=== PATIENT | male | born 1945 | race Caucasian/White ===

== ENCOUNTER → 2016-12-15 | Outpatient (CLI) | payer MEDICARE ==
--- NOTE | 2016-12-15 09:00 | XR ---
EXAMINATION TYPE: XR knee complete RT DATE OF EXAM ORDERED: 12/15/2016 8:55 AM HISTORY: Chronic knee pain. COMPARISON: None. FINDINGS: There is some peaking of intercondylar spines. Joint spaces are maintained. There is no ch ondrocalcinosis. No joint effusion is seen. No acute osseous lesion is identified. IMPRESSION: EARLIEST CHANGES OF OSTEOARTHRITIS.
== END | disposition home or self-care (01) ==
LOC: RADXRMAIN 08:41
PROVIDERS: ATTEND Internal Medicine
DX: M17.11 Unilateral primary osteoarthritis, right knee (principal)

== ENCOUNTER → 2016-12-17 | Outpatient (CLI) | payer BC, MEDICARE ==
[2016-12-17 13:41] LABS: Blood Urea Nitrogen 21 mg/dL (9-20); Non-African American GFR(MDRD) >60 (>60 ml/min/1.73 sqM)
--- NOTE | 2016-12-17 15:02 | CT ---
EXAMINATION TYPE: CT angio thoracic/abd aorta DATE OF EXAM: 12/17/2016 2:55 PM COMPARISON: NONE HISTORY: Aortic valve disorders CT DLP: 2243 mGycm Automated exposure control for dose reduction was used. TECHNIQUE: Performed without and with IV Contrast, patient injected with 100 mL of Omnipaque 350. . FINDINGS: The ascending thoracic aorta at the level of the main pulmonary artery is 4.0 cm the main pulmonary a rtery bifurcation is 2.9 cm. Note is made of calcified lymphadenopathy within the right hilar region. There is calcified granuloma measuring 0.6 cm in the periphery of the right upper lobe. Coronary art oziel calcification is noted. Punctate densities in the anterior mid left lung. Series 5 image 35. Subt le 5 mm densities in the anterior right middle lobe same level. Portion of the thyroid visualized is normal. There is hypodensity within the superior lateral right lobe liver with some peripheral enhancement. H emangioma may be present. Additional workup is recommended. Aorta tapers normally through its visuali zed course to the bifurcation. Internal/external iliac vessels are patent. Kidneys appear normal without masses cysts or hydronephrosis. The adrenal glands are normal. Spleen i s unremarkable. Pancreas is normal. Gallbladder is normal. Three-D reconstructed images performed separately on the [employer] computer by the technologist are pres ented. There is a three-vessel arch. Celiac axis and mesenteric arteries appear normal renal arteries appear normal IMPRESSION: NO SUSPICIOUS AORTIC ABNORMALITIES THROUGH THE THORACIC ABDOMINAL AND PROXIMAL PELVIC PORTIONS VISUAL IZED 2. SUSPECTED HEMANGIOMA PERIPHERY RIGHT LOBE LIVER. ADDITIONAL WORKUP IS RECOMMENDED.
== END | disposition home or self-care (01) ==
LOC: RADCTMAIN 12:56
PROVIDERS: ATTEND Internal Medicine Interventional Cardiology
DX: I35.1 Nonrheumatic aortic (valve) insufficiency (principal)
CPT/HCPCS: 82565; 84520; 75635; 71275; 36415; Q9967

== ENCOUNTER → 2018-12-28 | Outpatient (CLI) | payer MEDICARE ==
--- NOTE | 2018-12-28 12:27 | CT ---
EXAMINATION TYPE: CT angio chest DATE OF EXAM: 12/28/2018 COMPARISON: 12/17/2016 HISTORY: 73-year-old male Follow up ascending aortic aneurysm without rupture. TECHNIQUE: Contiguous axial scanning of the chest performed without and with IV Contrast, patient inj ected with 80 mL of Isovue 370. Coronal/sagittal MIP reconstructions performed. 3-D reconstructions g enerated on a dedicated independent workstation. CT DLP: 1112.1 mGycm Automated exposure control for dose reduction was used. FINDINGS: Heart normal size. Trace anterior pericardial fluid measuring 4 mm thick. Coronary vessel calcificati ons are present. -Aortic root is mildly aneurysmal at 4.1 cm versus 4.3 cm, previously. -Mid ascending aorta mildly aneurysmal at 4.2 cm versus 4.1 cm, previously. -Conventional arch vessel branching anatomy. -Ectatic upper descending thoracic aorta 3.0 cm versus 2.8 cm, previously. -Elongated descending thoracic aorta. -The lower descending thoracic aorta is ectatic at 2.8 cm, unchanged. Calcified right hilar lymph nodes related to prior granulomatous disease. No thoracic lymphadenopathy . Calcified granulomas and stable tiny tree-in-bud nodularity just adjacent peripheral right midlung. 4 mm anterior right midlung ovary nodule axial image 35 is unchanged. Scattered mild emphysematous alex nge. No consolidation or pleural effusion. Visualized upper abdomen shows hemangioma along the peripheral right hepatic dome without additional abnormality seen. Bones: Moderate multilevel degenerative disc disease and thoracic spine. IMPRESSION: 1. RELATIVELY STABLE ANEURYSMAL THORACIC AORTA (AORTIC ROOT 4.1 CM VERSUS 4.3 CM, PREVIOUSLY; ASCENDI NG AORTA 4.2 CM VERSUS 4.1 CM, PREVIOUSLY). 2. THE UPPER DESCENDING THORACIC AORTA IS BORDERLINE ANEURYSMAL AT 3.0 CM VERSUS 2.8 CM, PREVIOUSLY. 3. VERY MILD EMPHYSEMATOUS CHANGE AND PRIOR GRANULOMATOUS DISEASE. 4. TRACE ANTERIOR PERICARDIAL EFFUSION MEASURING 4 MM THICK. CORONARY ARTERY DISEASE.
== END | disposition home or self-care (01) ==
LOC: RADCTMAIN 09:56
PROVIDERS: ATTEND Internal Medicine Interventional Cardiology
DX: I25.10 Atherosclerotic heart disease of native coronary artery without angina pectoris (principal)
CPT/HCPCS: 82565; 84520; 71275; 36415; Q9967

== ENCOUNTER → 2019-09-08 | Outpatient (CLI) | payer MEDICARE ==
--- NOTE | 2019-09-08 10:04 | CT ---
EXAMINATION TYPE: CT angio chest DATE OF EXAM: 09/08/2019 COMPARISON: CTA chest December 28, 2018 and older study December 17, 2016. HISTORY: Thoracic Aortic Aneurysm without rupture CT DLP: 445 mGycm. Automated Exposure Control for Dose Reduction was Utilized. CONTRAST: CTA scan of the thorax is performed with IV Contrast, patient injected with 80 mL of Isovue 370, pulm onary embolism protocol. Three-D reconstructed images are created on an independent workstation and r eviewed. FINDINGS: LUNGS: There is redemonstration of 5 mm calcified nodule or granuloma right upper lobe axial image 22 . There is no pleural effusion or pneumothorax seen bilaterally. The tracheobronchial tree is patent . No suspicious consolidation is present. MEDIASTINUM: There is satisfactory central opacification of central pulmonary arteries. There are no greater than 1 cm hilar or mediastinal lymph nodes. Trace pericardial effusion anteriorly axial imag e 34 is less prominent. Heart size is normal. Ascending aorta measures up to 4.3 cm in diameter axial image 26 not significantly changed from last 2 studies. Mild to moderate peripheral mixed plaque in the arch and descending aorta. OTHER: [id number]-[id number] multilevel spurring in the spine. Nonspecific subcentimeter hyperdense nodula rity right hepatic dome image 47 could reflect tiny flash filling hemangioma or other vascular anomal y. Findings stable. IMPRESSION: Stable 4.3 cm ascending aortic aneurysm.
== END | disposition home or self-care (01) ==
LOC: RADCTMAIN 08:29
PROVIDERS: ATTEND Nurse Practitioner Adult Health
DX: I71.2 Thoracic aortic aneurysm, without rupture (principal)
CPT/HCPCS: 82565; 84520; 71275; 36415; Q9967

== ENCOUNTER → 2021-02-08 | Outpatient (CLI) | payer MEDICARE ==
--- NOTE | 2021-02-08 15:46 | CT ---
CT CHEST FOR PULMONARY EMBOLISM. EXAMINATION TYPE: CT angio chest DATE OF EXAM: 02/08/2021 INDICATION: Thoracic aortic aneurysm, without rupture CT DLP: 978.40 mGycm, Automated exposure control for dose reduction was used. CONTRAST: Patient injected with 100 ml mL of Isovue 370. COMPARISON: 09/08/2019 TECHNIQUE: CT of the chest is performed on a spiral scan at 2 mm thick sections. Study is performed with intravenous contrast timed for evaluation for pulmonary embolism. This will limit additional po rtions of the evaluation. 3-D MIP images reconstructed by the technologist are reviewed on the compu ter in the coronal and sagittal planes. FINDINGS: No persistent filling defects are evident to suggest an acute pulmonary embolism. No mediastinal or hilar adenopathy enlarged by CT criteria is evident. The ascending aorta diameter at the level of the main pulmonary artery is 4.2 cm. The main pulmonary artery diameter at the bifur cation is 3.1 cm. Parapelvic aortic root measures 3.5 cm. Ascending thoracic aorta at the level of ma in pulmonary artery is 4.2 cm. Aortic arch transverse dimension is 2.6 cm. Descending thoracic aorta at the level of the diaphragm measures 2.7 cm. There is a 0.6 cm calcification in the periphery of the right lung. Calcified right hilar adenopathy is evident. Note is made of some coronary artery calcification. Limited CT section through the upper abdomen are unremarkable. IMPRESSIONS: 1. Acute pulmonary embolism. 2. Ascending thoracic aortic aneurysm measuring 4.2 cm.
== END | disposition home or self-care (01) ==
LOC: RADCTMAIN 08:28
PROVIDERS: ATTEND Internal Medicine Interventional Cardiology
DX: I71.2 Thoracic aortic aneurysm, without rupture (principal); I26.99 Other pulmonary embolism without acute cor pulmonale
CPT/HCPCS: 82565; 84520; 71275; 36415; Q9967

== ENCOUNTER → 2021-12-13 | Outpatient (CLI) | payer MEDICARE ==
[2021-12-13 14:33] LABS: HCT 42.9 % (39.6-50.0); HGB 13.8 g/dL (13.0-17.0); MCH 31.7 pg (27.0-32.0); MCHC 32.2 g/dL (32.0-37.0); MCV 98.6 fL (80.0-97.0); Mean Platelet Volume 9.9 fL (9.5-12.2); NRBC Per 100 WBC 0 /100 WBCS (0.0-0.0); Platelet Count 253 X 10*3/uL (140-440); RBC 4.35 X 10*6/uL (4.40-5.60); RDW 13.2 % (11.5-14.5); WBC 6.11 X 10*3/uL (4.50-10.00)
[2021-12-13 15:11] LABS: African American GFR (CKD) 92.1 (60.0-200.0); Anion Gap 11.2 mmol/L (10.00-18.00); Blood Urea Nitrogen 19.8 mg/dL (9.0-27.0); Carbon Dioxide 25.9 mmol/L (20.0-27.5); Non-African American GFR(CKD) 79.5 (60.0-200.0); Potassium 4.2 mmol/L (3.5-5.5)
[2021-12-14 12:16] LABS: Coronavirus SARS CoV-2 Not Detected (Not Detected)
== END | disposition home or self-care (01) ==
LOC: LABPAT 08:25
PROVIDERS: ATTEND Internal Medicine Clinical Cardiac Electrophysiology
DX: Z01.812 Encounter for preprocedural laboratory examination (principal); Z20.822 Contact with and (suspected) exposure to COVID-19; I44.1 Atrioventricular block, second degree
CPT/HCPCS: 80051; 82565; 84520; 85027; 36415; U0003; C9803; U0005

== ENCOUNTER 2021-12-16 05:58 | Day surgery (SDC) | payer MEDICARE ==
[2021-12-13 13:14] VITALS: BMI 30.5
[2021-12-16] MEDS ORDERED: LACTATED RINGERS 1,000 ML IV SCH (06:00)
[2021-12-16] MEDS ORDERED: SODIUM CHLORIDE 0.9% 1,000 ML IV SCH ×2 (06:00)
[2021-12-16] MEDS ORDERED: SODIUM CHLORIDE 0.9% 1,000 ML IV ONE (06:30)
[2021-12-16] MEDS ORDERED: PROPOFOL 10 MG/ML 20 ML VIAL IV ONE (07:27)
[2021-12-16] MEDS ORDERED: MIDAZOLAM 2 MG/2 ML VIAL ONE (07:27)
[2021-12-16] MEDS ORDERED: diphenhydrAMINE 50 MG/ML 1 ML VIAL ONE (07:27)
[2021-12-16] MEDS ORDERED: fentaNYL (PF) 50 MCG/ML 2 ML AMP ONE (07:27)
[2021-12-16] MEDS ORDERED: IOPAMIDOL-370 50ML BTL INJ ONE (07:39)
[2021-12-16] MEDS ORDERED: LIDOCAINE 1% INJ 10MG/ML (20 ML MDV) SQ ONE (08:00)
[2021-12-16] MEDS ORDERED: ACETAMINOPHEN TAB 325 MG TAB PO PRN (09:58)
[2021-12-16] MEDS ORDERED: ACETAMINOPHEN IV (For NPO) 1,000 MG in EMPTY BAG 1 BAG IVPB ONE (09:58)
--- NOTE | 2021-12-16 10:03 | P.EPPROC ---
- EP Procedure Note Electrophysiology Procedure Note: Procedure Left upper extremity venogram Details 10 mL dye injection the left arm Patent left axillary and subclavian venous system into the central venous circulation Plan Proceed with biventricular pacing for intermittent complete heart block with a prolonged AR interval at baseline of between 350-400 ms
--- NOTE | 2021-12-16 10:09 | P.EPPROC ---
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 Written informed consent was obtained prior to the procedure. Conscious sedation provided by anesthesia team IV antibiotics administered. Local anesthesia administered. A 4 cm incision made in the pectoral area. Subfascial pocket made. Venous access obtained Venous sheaths placed. Leads placed in the right heart Atrial lead position the right atrial appendage. Metronic 52 cm model #5076, active fix P waves 2.1 mV pacing impedance 570 ohms and pacing threshold 0.5 V at 0.4 ms RV lead position in the RV apex. Metronic model #5076, 58 cm in length, active fix R waves 11.4 mV, pacing impedance 931 ohms, pacing threshold 0.75 V at 0.4 ms HIS lead positioned Metronic model #3830 #69 cm in length Nonselective capture with threshold at 1 V at 1 ms Pacing impedance 513 ohms Biventricular pacemaker device connected to the leads and placed in the subfascial pocket Metronic generator model number [id number] [facility] [employer] [employer] P MRI Patient tolerance the procedure well without acute complications Device programmed to DDD mode 50 PPM, AV delay 160 ms with preferential His bundle pacing
--- NOTE | 2021-12-16 14:09 | XR ---
EXAMINATION TYPE: XR chest 1V portable DATE OF EXAM: 12/16/2021 Comparison: CT 02/08/2021. Clinical History: 76-year-old male Lead placement check Findings: Left anterior chest wall pacemaker generator. There are 3 leads, suspected one right atrial lead and 2 right ventricular leads, one of which is short and can be correlated clinically. Heart borderline i n size. The vasculature within normal limits. Known calcified granuloma periphery of the right midlun g. No consolidation, pneumothorax, or pleural effusion. Impression: 1. Left anterior chest wall pacemaker generator. There are 3 leads. Suspect a right atrial lead and 2 right ventricular leads, one of which is short and can be correlated clinically. 2. Borderline heart size. No acute process seen.
[2021-12-17] MEDS: ASPIRIN 81 MG PO SCH (05:57)
[2021-12-17] MEDS: ATORVASTATIN 20 MG TAB PO SCH (05:57)
[2021-12-17] MEDS ORDERED: ceFAZolin 1 GM in SODIUM CHLORIDE 0.9% IRRIG BTL 250 ML IRRIGATION PRN ×2 (06:00→07:00)
[2021-12-17] MEDS: LOSARTAN-HCTZ 50-12.5 MG 1 EACH TAB PO SCH (09:13)
[2021-12-17] MEDS ORDERED: diphenhydrAMINE 50 MG/ML 1 ML VIAL ONE (09:44)
[2021-12-17] MEDS ORDERED: fentaNYL (PF) 50 MCG/ML 2 ML AMP ONE (09:44)
[2021-12-17] MEDS ORDERED: PROPOFOL 10 MG/ML 20 ML VIAL IV ONE (09:44)
[2021-12-17] MEDS ORDERED: MIDAZOLAM 2 MG/2 ML VIAL ONE (09:44)
[2021-12-17] MEDS ORDERED: LACTATED RINGERS 1,000 ML IV ONE (09:50)
[2021-12-17] MEDS ORDERED: LIDOCAINE 1% INJ 10MG/ML (20 ML MDV) ONE ×2 (10:07→10:08)
[2021-12-17] MEDS ORDERED: LIDOCAINE 1% INJ 10MG/ML (20 ML MDV) SQ ONE (10:25)
[2021-12-17] MEDS ORDERED: IOPAMIDOL-250 50ML BTL IV ONE (11:08)
[2021-12-17] MEDS ORDERED: ACETAMINOPHEN TAB 325 MG TAB PO PRN (12:25)
--- NOTE | 2021-12-17 12:32 | P.EPPROC ---
- EP Procedure Note Electrophysiology Procedure Note: Diagnosis Bradycardia secondary to AV block, standard pacemaker will result in RV pacing 100% His bundle lead dislodgment despite excellent initial position and thresholds Procedure LV/ biventricular pacemaker implantation New biventricular pacemaker can implanted, quadripolar connection Old biventricular pacemaker can removed, bipolar connection Repositioning atrial lead Lead repositioning RV lead Details Patient was brought to the EP lab in a fasting state. Written informed consent was obtained prior to the procedure. Conscious sedation provided by anesthesia team IV antibiotics administered. Local anesthesia administered. A 4 cm incision made in the pectoral area. Subfascial pocket accessed. Single Venous access obtained Venous sheath placed. LV Lead placed in the right heart. His bundle lead extracted and the access site oversewn to prevent backbleeding Atrial lead position the right atrial appendage. Atrial lead was unscrewed and repositioned P waves 2.5 mV, pacing threshold 0.5 V at 0.4 ms and pacing impedance of 589 ohms, 10 V negative RV lead position in the RV apex. RV lead was unscrewed and repositioned 8.1 mV sensing, 0.5 V at 0.4 ms pacing threshold, pacing impedance 517 ohms and 10 V test negative LV lead positioned in the anterior LV vein. Difficult coronary sinus access, multiple sheaths used to access the coronary sinus Excellent thresholds via poles 1,2 and 3, without phrenic nerve stimulation Diaphragmatic stimulation after 3 V when pacing electrodes 3-4 Threshold 0.75 V at 0.4 ms, pacing impedance 1045 ohms Biventricular pacemaker device connected to the leads and placed in the subfascial pocket Patient tolerance the procedure well without acute complications
[2021-12-17] MEDS ORDERED: ACETAMINOPHEN IV (For NPO) 1,000 MG in EMPTY BAG 1 BAG IVPB ONE (13:00)
[2021-12-18 07:23] VITALS: BP 131/63; TEMP 98.9
--- NOTE | 2021-12-18 07:47 | XR ---
EXAMINATION TYPE: XR chest 1V portable DATE OF EXAM: 12/18/2021 COMPARISON: Chest x-ray December 16, 2021 HISTORY: Lead placement check. TECHNIQUE: Single AP portable frontal upright view of the chest is obtained. FINDINGS: There is chronic parenchymal change without suspicious new focal air space opacity, pleura l effusion, or pneumothorax seen. The cardiac silhouette size is stable and mildly enlarged. Pacemak er with leads over right atrium and right ventricle redemonstrated. There is new third lead presumed in the coronary sinus. The osseous structures are intact. IMPRESSION: No complication after new pacemaker lead placement.
--- NOTE | 2021-12-18 07:59 | P.DS ---
Providers Attending physician: Terrance Saucedo Primary care physician: Shelia Vega [facility] Course: Patient is doing well. He is resting comfortably in bed No dizziness lightheadedness or palpitations Minimal discomfort Pulse rate in the 60s Blood pressure normal 131/63 mmHg Afebrile No JVD no hepatojugular reflux Basic site is healed well minimal soakage No hematoma Soft S1, soft S2, soft systolic murmur over the precordium Lungs are clear no rhonchi no crackles Abdomen soft Twelve-lead EKG shows AV sequential Bi V pacing Impression Incomplete heart block AV node Wenckebach block when pacing at at a thousand milliseconds Biventricular pacemaker implanted His bundle lead dislodged after an excellent position and excellent thresholds LV lead placed via the anterior vein on the lateral LV, excellent thresholds Likely RA and RV as well as LV enlargement given the length of the leads accommodated Suggest May go home after completion of IV antibiotics and device interrogation Chest x-ray was reviewed and does not show any evidence of pneumothorax All 3 leads and excellent position Follow-up in the device clinic in a week in follow Dr. Griffiths and Dr. Vega as before Plan - Discharge Summary Discharge Rx Participant: No New Discharge Prescriptions: Continue Atorvastatin [Lipitor] 20 mg PO DAILY Aspirin [Adult Low Dose Aspirin EC] 81 mg PO DAILY Losartan/Hydrochlorothiazide [Losartan-Hctz 100-25 mg Tab] 1 tab PO DAILY Discharge Medication List Atorvastatin [Lipitor] 20 mg PO DAILY 12/13/21 [History] Losartan/Hydrochlorothiazide [Losartan-Hctz 100-25 mg Tab] 1 tab PO DAILY 12/13/21 [History] Aspirin [Adult Low Dose Aspirin EC] 81 mg PO DAILY 12/16/21 [History] Follow up Appointment(s)/Referral(s): Terrance Saucedo MD [STAFF PHYSICIAN] - 12/23/21 10:30 am (Appointment is the at the [facility]- December [address] Griffiths as previously scheduled) Reinier Griffiths MD [STAFF PHYSICIAN] - 1 Week Shelia Vega MD [Primary Care Provider] - 1 Week Patient Instructions/Handouts: Procedural Sedation (ED), Pacemaker (DC) Activity/Diet/Wound Care/Special Instructions: PATIENT EDUCATION MATERIAL Instructions following a heart rhythm device implant. 1. Keep dressing DRY for 5 DAYS. You may cover the area with Saran or Cling Wrap, prior to a shower. 2. The dressing will be removed in the [facility]. Absorbable sutures were used to close the wound. 3. Avoid raising the left arm above the shoulder level. 4 week restriction 4. Avoid arm movements, like backscratching, rubbing the head, or pulling on a cord. 4 weeks restriction 5. Gentle range of motion movements of the shoulder, closest to the incision should be performed to avoid a frozen shoulder. (Pendulum exercises of the shoulder) 6. The opposite arm may be used freely. 7. Avoid driving for 7 days. 8. Avoid activities such as golfing, swimming, weed whacking, lifting more than 10 pounds weight, bowling, gymnastics and weight training/lifting. (6 weeks restriction) 9. Activities such as wood chopping with an axe, pull-ups in the gymnasium, power lifting, arc-welding, being close to home induction cooktops will always be a problem. 10. Arm sling is only a reminder not to raise the arm above the head. You do not need to keep the arm completely immobilized. Your free to move the arm and use it and for normal activities. In case of any problems, please call [facility], @ [phone], Attention: Device Clinic Device clinic follow-up in 5-7 days Follow-up with primary liquor store manager Dr. Griffiths as previously scheduled No change in medications Discharge Disposition: HOME SELF-CARE
[2021-12-18 08:44] VITALS: PULSE 61
[2021-12-18] MEDS: LOSARTAN-HCTZ 50-12.5 MG 1 EACH TAB PO SCH (09:06)
[2021-12-18] MEDS: ASPIRIN 81 MG PO SCH (09:08)
[2021-12-18] MEDS: ATORVASTATIN 20 MG TAB PO SCH (09:08)
[2021-12-18 10:30] VITALS: RESP 14
== END 2021-12-18 12:22 | disposition home or self-care (01) ==
LOC: CATHEP 05:58 → 6NMEDSUR 13:53 → CATHEP 12-18 12:22
PROVIDERS: ATTEND Internal Medicine Clinical Cardiac Electrophysiology
DX: Z45.018 Encounter for adjustment and management of other part of cardiac pacemaker (principal); R00.1 Bradycardia, unspecified; I10 Essential (primary) hypertension; I71.2 Thoracic aortic aneurysm, without rupture; E78.2 Mixed hyperlipidemia; I35.1 Nonrheumatic aortic (valve) insufficiency; I36.1 Nonrheumatic tricuspid (valve) insufficiency; I34.0 Nonrheumatic mitral (valve) insufficiency; I45.9 Conduction disorder, unspecified; Z79.82 Long term (current) use of aspirin; Z79.899 Other long term (current) drug therapy
CPT/HCPCS: 33225; 33208; 33229; 71045 ×2; C1769 ×4; C1887; C1892; C1898; C2621 ×2; J2250 ×2; J1200 ×2; J0690 ×3; J2001 ×2; J3010 ×2; J2704 ×2; Q9966; Q9967

== ENCOUNTER → 2023-07-21 | Outpatient (CLI) | payer MEDICARE ==
--- NOTE | 2023-07-21 22:53 | US ---
EXAMINATION TYPE: US kidneys/renal and bladder DATE OF EXAM: 07/21/2023 COMPARISON: NONE CLINICAL INDICATION: Male, 78 years old with history of R31.29 OTHER MICROSCOPIC HEMATURIA; micro men aturia on urinalysis EXAM MEASUREMENTS: Right Kidney: 11.5x5.1x5.8 cm Left Kidney: 10.4x6.0x4.9 cm Right Kidney: wnl, slightly limited visualization due to close rib spaces, bowel and body habitus Left Kidney: wnl, slightly limited due to bowel Bladder: wall diverticulum noted, though bladder was not fully distended. Prostate appears to protrud e into posterior bladder Bilateral Jets seen: Yes IMPRESSION: 1. Suggestion of urinary bladder diverticulum. 2. Prostate hypertrophy with inferiorly bladder impression #3 kidneys appear unremarkable.
== END | disposition home or self-care (01) ==
LOC: RADUSWWP 14:00
PROVIDERS: ATTEND Internal Medicine
DX: N40.0 Benign prostatic hyperplasia without lower urinary tract symptoms (principal); R31.29 Other microscopic hematuria
CPT/HCPCS: 76770

== ENCOUNTER 2024-08-22 08:01 | Day surgery (SDC) | payer MEDICARE ==
[2024-08-17 12:25] VITALS: BMI 31.1
[~2024-08-22 08:01] MED LIST: LIDOCAINE 1% (10MG/ML) FOR IV START INTRADERMA PRN
[2024-08-22 08:23] VITALS: TEMP 96.2
[2024-08-22] MEDS: IV FLUID CONTINUATION 1,000 ML IV ONE (08:28)
[2024-08-22] MEDS: LACTATED RINGERS 1,000 ML IV SCH (08:28)
[2024-08-22 08:37] LABS: Glucose,Whole Blood 110 mg/dL (70-110)
[2024-08-22] MEDS ORDERED: PROPOFOL 10 MG/ML 20 ML VIAL IV ONE (08:40)
--- NOTE | 2024-08-22 09:16 | P.PCN ---
Date of Procedure: 08/22/24 Preoperative Diagnosis: Positive Cologuard Postoperative Diagnosis: Rectal polyp Cecal polyp Procedure(s) Performed: Colonoscopy with hot snare polypectomy Anesthesia: MAC Surgeon: Yuri Lopez Pathology: other (Rectal polyp and cecal polyp) Condition: stable Disposition: same day Indications for Procedure: 79-year-old male presents today for colonoscopy secondary to positive Cologuard. Denies any blood in his stool. Denies any family history of colon cancer, Crohn's disease or inflammatory bowel disease. Risks, benefits and alternatives were provided to the patient. All questions answered prior to attending the endoscopy suite. Operative Findings: Rectal polyp Cecal polyp Description of Procedure: The patient was brought to the endoscopy suite. He was then placed in left lateral decubitus position and adequate sedation achieved using conscious sedation. A digital rectal exam was performed and mild internal hemorrhoids were palpated. An endoscope was then placed in the rectum and advanced to the cecum as identified by landmarks including the appendiceal orifice and the ileocecal valve. The prep was good. The colonoscope was then slowly withdrawn, examining for any mucosal abnormalities. The cecum, ascending, transverse, descending and sigmoid colon were visualized adequately. A polyp was found in the cecum and this was removed with hot snare polypectomy. Hemostasis was maintained. Similarly a polyp was found in the rectum and this was removed with hot snare polypectomy. Hemostasis was maintained. Both polyps were removed in entirety. Retroflexion was performed in the rectum and mild internal hemorrhoids were visible. No evidence of diverticulosis throughout the colon. Excess air was removed. The colonoscope withdrawn and the procedure terminated. The patient was then transferred to the recovery unit in stable condition. Repeat colonoscopy should be performed in 3 years.
[2024-08-22 09:29] VITALS: BP 111/70; PULSE 68; RESP 18
== END 2024-08-22 09:45 | disposition home or self-care (01) ==
LOC: ORWHC2ENDO 08:01
PROVIDERS: ATTEND Surgery
CPT/HCPCS: 45385; 88305

== ENCOUNTER → 2024-10-06 | Outpatient (CLI) | payer MEDICARE ==
[2024-10-06 15:15] LABS: African American GFR (CKD) 75 (>60 ml/min/1.73 sqM); Blood Urea Nitrogen 29 mg/dL (9-20); Non-African American GFR(CKD) 65 (>60 ml/min/1.73 sqM)
--- NOTE | 2024-10-06 19:41 | CT ---
EXAMINATION TYPE: CT angio chest DATE OF EXAM: 10/06/2024 3:48 PM COMPARISON: 02/18/2021 CLINICAL INDICATION: Male, 79 years old with history of I71.20 ANEURYSM, Thoracic aortic aneurysm. TECHNIQUE: CT of the chest is performed on a spiral scan at 2 mm thick sections. Study is performed with intravenous contrast timed for evaluation for thoracic aneurysm. This will limit additional por tions of the evaluation. 3-D MIP images reconstructed by the technologist are reviewed on the [facility] er in the coronal and sagittal planes. Contrast used:100 ml mL of Isovue 370 with IV Contrast, (none if empty) Oral contrast used: (none if empty) CT DLP: 1283.3 mGycm, Automated exposure control for dose reduction was used. FINDINGS: Pre and postcontrast imaging is performed. No mediastinal or hilar adenopathy enlarged by CT criteria is evident. Calcified lymphadenopathy is present. There is a three-vessel arch. Aortic calcification is noted. Aorta at the aortic root measures 3.3 cm . The aorta at the main pulmonary artery measures 4.0 cm. (Previous measurement of 4.2 cm.) Transver se dimension of the aortic arch is 2.8 cm. The aorta at the diaphragm measures 2.5 cm. The main pulmonary artery diameter at the bifurcation is 3.0 cm. Coronary artery calcification may b e present. There is a calcification in the lateral right measuring 0.5 cm. Multiple tiny adjacent nodules are no dilan. There is a 0.4 cm nodule in the anterior right lung. Series 3 image 32. There is a punctate nodu le anterior left lung. Series [address] sections were through the upper abdomen. Upper abdomen appears unremarkable. IMPRESSION: 1. Ascending thoracic aortic aneurysm is stable with current measurement of 4.0 cm. 2. Stable appearing punctate nodularity within the lung bateman discussed above. [facility], , 10/06/2024 7:39 PM
== END | disposition home or self-care (01) ==
LOC: RADCTMAIN 14:23
PROVIDERS: ATTEND Internal Medicine Interventional Cardiology
DX: I71.21 Aneurysm of the ascending aorta, without rupture (principal); R91.8 Other nonspecific abnormal finding of lung field
CPT/HCPCS: 82565; 84520; 71275; 36415; Q9967

== ENCOUNTER → 2024-12-20 | Outpatient (CLI) | payer MEDICARE ==
[2024-12-20 07:37] LABS: African American GFR (CKD) 65 (>60 ml/min/1.73 sqM); Blood Urea Nitrogen 29 mg/dL (9-20); Non-African American GFR(CKD) 56 (>60 ml/min/1.73 sqM)
--- NOTE | 2024-12-23 19:17 | CT ---
EXAMINATION TYPE: CT urogram wo/w con DATE OF EXAM: 12/20/2024 9:19 AM COMPARISON: None. CLINICAL INDICATION: Male, 79 years old with history of R82.89 abnormal urine cytology, Abnormal urin e cytology TECHNIQUE: Contrast used:80 mL of Isovue 370 with IV Contrast, (none if empty) Oral contrast used: (none if empty) Axial images at 3 mm thick sections. Reconstructed images in the coronal and sagittal planes. Three-D reconstructed images were performed through the kidneys ureter and bladder. FINDINGS: Three-D reconstructed images are reviewed on the computer. Renal calyces infundibula and renal pelves appear normal. Ureters follow a normal caliber course and contour to the urinary bladder. There are areas without contrast limiting their evaluation. Limited CT sections are obtained through the lung bases which are clear. CT ABDOMEN: Liver and spleen of normal density without discrete masses or cysts. Pancreas is unremark able adrenal glands are normal. Gallbladder is normal. Some vascular calcifications within the aorta. Inferior vena cava is unremarkable. Kidneys: No masses cysts or hydronephrosis are evident. Following contrast no suspicious renal enhanc ement is evident. There is symmetrical uptake and excretion through the kidneys. Cortical renal cyst is identified in the lateral right mid kidney on postcontrast imaging. Delayed images were obtained t hrough the kidneys and renal collecting systems to the urinary bladder. CT pelvis: Loops of bowel within the abdomen and pelvis are unremarkable. Couple of diverticular salas ges are within the sigmoid colon. On the delayed images there is some irregularity of the contrast wi thin the posterior urinary bladder. Consider cystoscopy for additional evaluation. Prostate is normal . IMPRESSION: 1. NORMAL KIDNEYS CALYCES AND INFUNDIBULUM, RENAL PELVES AND URETERS TO THE URINARY BLADDER. 2. THERE IS POSTERIOR WALL IRREGULARITY ON POSTCONTRAST IMAGING THROUGH THE URINARY BLADDER. CONSIDER CYSTOSCOPY FOR ADDITIONAL EVALUATION. [facility], Workstation: [id number], 12/23/2024 7:15 PM
== END | disposition home or self-care (01) ==
LOC: RADCTMAIN 06:31
PROVIDERS: ATTEND Internal Medicine
DX: R82.89 Other abnormal findings on cytological and histological examination of urine (principal)
CPT/HCPCS: 82565; 84520; 74178; 36415; 74400; Q9967